=== PATIENT | male | born 1955 | race Caucasian/White ===

== ENCOUNTER 2024-01-08 11:00 | Day surgery (SDC) | payer OTHER ==
[2024-01-03 12:51] VITALS: BMI 32.1
[2024-01-08 11:25] VITALS: TEMP 97.7
[2024-01-08 12:52] VITALS: RESP 18
[2024-01-08 12:53] VITALS: BP 126/68; PULSE 85
== END 2024-01-08 13:03 | disposition home or self-care (01) ==
LOC: FASU-ENDO 11:00
PROVIDERS: ATTEND Internal Medicine Gastroenterology
PROC: 0DBN8ZX Excision of Sigmoid Colon, Via Natural or Artificial Opening Endoscopic, Diagnostic (ICD-10-PCS; principal; 2024-01-08 12:13)
DX: Z12.11 Encounter for screening for malignant neoplasm of colon (principal); K63.5 Polyp of colon; K57.30 Diverticulosis of large intestine without perforation or abscess without bleeding
CPT/HCPCS: 88305-TC